=== PATIENT | female | born 1945 | race Caucasian/White ===

== ENCOUNTER → 2016-11-27 | Outpatient (CLI) | payer OTHER ==
[~2016-11-27] MED LIST: ATEN-36 PO; MULT-728 PO; NITR0.4T38 SL; aspirin PO; fish oil; vitamin d; zocor PO
== END ==
LOC: IMA 08:04
PROVIDERS: ATTEND Family Medicine
DX: M17.11 Unilateral primary osteoarthritis, right knee (principal)